=== PATIENT | male | born 1955 | race Caucasian/White ===

== ENCOUNTER 2024-12-02 07:35 | Inpatient (IN) | payer MEDICARE, OTHER ==
[~2024-12-02] VITALS: Ht 160 cm; Wt 91.6 kg
[2024-12-02] MEDS: VANCOMYCIN 1 GM in IV D5W 250 ML IV SCH (08:00)
[2024-12-02] MEDS ORDERED: ACETAMINOPHEN 325 MG TABLET PO PRN ×2 (08:30→13:30)
[2024-12-02] MEDS ORDERED: FAMOTIDINE/PF INJ 20 MG/2 ML VIAL IV ONE (09:07)
[2024-12-02] MEDS ORDERED: ROCURONIUM BROMIDE 50 MG/5 ML ONE (09:07)
[2024-12-02] MEDS ORDERED: FENTANYL PF 100MCG/2ML AMPUL ONE ×2 (09:07→10:40)
[2024-12-02] MEDS ORDERED: LIDOCAINE 2%-EPI 1:100,000 30 ML VIAL ONE (09:11)
[2024-12-02] MEDS ORDERED: dexaMETHasone SOD PHOSPHATE 2 ML ONE (09:12)
[2024-12-02] MEDS ORDERED: OXYMETAZOLINE HCL NASAL SPRAY 30 ML BOTTLE NS ONE (09:12)
[2024-12-02] MEDS ORDERED: LIDOCAINE 5% OINT 35.44 GM TUBE ONE (09:14)
[2024-12-02] MEDS ORDERED: ONDANSETRON HCL/PF 4 MG/2 ML VIAL IVP PRN ×2 (10:30→13:30)
[2024-12-02] MEDS ORDERED: LABETALOL 20 MG/4 ML VIAL ONE (11:01)
[2024-12-02] MEDS ORDERED: LABETALOL 20 MG/4 ML VIAL IV PRN (12:00)
[2024-12-02] MEDS ORDERED: HYDROMORPHONE 1 MG/1 ML DISP.SYRIN IV PRN (13:30)
[2024-12-02] MEDS: IV NS 0.9% 1,000 ML IV PRN (13:59)
[2024-12-02 16:18] VITALS: BP 161/95; TEMP 97.5; O2SAT 94
[2024-12-02 20:00] VITALS: BP 125/75; TEMP 97.5; O2SAT 96
[2024-12-02] MEDS: VANCOMYCIN 1 GM in IV D5W 250ml IV SCH (20:56)
[2024-12-03 08:23] VITALS: BP 120/74; TEMP 97.9; O2SAT 97
[2024-12-03 12:19] LABS: APPEARANCE,URINE CLEAR (CLEAR); BILIRUBIN,URINE NEGATIVE (NEGATIVE); BLOOD, URINE TRACE-INTA Ery/uL (NEGATIVE); COLOR,URINE YELLOW (YELLOW); KETONES,URINE NEGATIVE (NEGATIVE); LEUKOCYTE ESTERASE ,URINE TRACE (NEGATIVE); NITRITE, URINE NEGATIVE (NEGATIVE); PROTEIN,URINE NEGATIVE (NEGATIVE); UGLUCOSE NEGATIVE (NEGATIVE)
[2024-12-03 12:27] LABS: ADD URINE CULTURE NO; BACTERIA,URINE None seen /HPF (None Seen); RBC,URINE 0-2 /HPF (0-2); SQUAMOUS EPITHELIAL CELL,UR 0-2 /HPF (None Seen); WBC,URINE 0-2 /HPF (0-3)
== END 2024-12-03 14:07 | disposition home or self-care (01) | DRG 497 ==
LOC: DS 07:35 → MED 13:19
PROVIDERS: ADMIT Internal Medicine; ATTEND Internal Medicine
PROC: 0N5R0ZZ Destruction of Maxilla, Open Approach (ICD-10-PCS; 2024-12-02)
PROC: 0NUR07Z Supplement Maxilla with Autologous Tissue Substitute, Open Approach (ICD-10-PCS; 2024-12-02)
PROC: 09UQ07Z Supplement Right Maxillary Sinus with Autologous Tissue Substitute, Open Approach (ICD-10-PCS; 2024-12-02)
PROC: 09UR07Z Supplement Left Maxillary Sinus with Autologous Tissue Substitute, Open Approach (ICD-10-PCS; 2024-12-02)
PROC: 0NSR04Z Reposition Maxilla with Internal Fixation Device, Open Approach (ICD-10-PCS; principal; 2024-12-02 09:35)
DX: S02.40CK Maxillary fracture, right side, subsequent encounter for fracture with nonunion (principal); S02.40DK Maxillary fracture, left side, subsequent encounter for fracture with nonunion; M27.2 Inflammatory conditions of jaws; D16.4 Benign neoplasm of bones of skull and face; E11.9 Type 2 diabetes mellitus without complications; E66.9 Obesity, unspecified; E78.5 Hyperlipidemia, unspecified; I10 Essential (primary) hypertension; I25.10 Atherosclerotic heart disease of native coronary artery without angina pectoris; Z87.891 Personal history of nicotine dependence; X58.XXXD Exposure to other specified factors, subsequent encounter; J32.0 Chronic maxillary sinusitis; M27.49 Other cysts of jaw; I25.2 Old myocardial infarction; Z87.440 Personal history of urinary (tract) infections
CPT/HCPCS: 81001; 82962-TC; 88305-TC; 88311-TC; A4223; A4338; C1713; G0378; J1100; J1171; J1308; J2405; J2704; J3010; J3370; J3490; J7030; J7050; J7060